=== PATIENT | female | born 1945 | race American Indian/Alaskan Native ===

== ENCOUNTER 2017-12-06 17:21 | Inpatient (IN) | payer MEDICARE ==
--- NOTE | 2017-12-06 18:34 | Emergency Department Report ---
ED Abdominal Pain HPI - General Chief Complaint: Nausea/Vomiting/Diarrhea Stated Complaint: RE-EVALUATION Time Seen by Provider: 12/06/17 18:33 Source: patient Mode of arrival: Wheelchair Limitations: No Limitations - History of Present Illness Initial Comments: This is a pleasant 71-year-old [place] female who was recently diagnosed with stage III colon cancer due to an adenocarcinoma. She recently underwent surgical resection and has a diverting ileostomy bag in place. The last few days she has noticed increased abdominal pain described as cramping and "labor- like". She states that she hasn't had any gas come out of the ileostomy bag until very recently. She said that on Thursday, and Thursday, she vomited once on each day. She also vomited on Thursday. Today the patient reports that her ileostomy bag did rupture and liquid stool was expressed. She did state that she did get some relief after this episode. She does continue to have nausea. She is also tearful about her recent diagnosis of stage III colon cancer. She has had home health come to the house and assist her. At the present time she is not in any pain. She does admit to chills however. She states that she does not have much of an appetite at this time. There is also the possibility of a subjective fever. MD Complaint: abdominal pain -: days(s) (3) Location: diffuse Radiation: none Migration to: no migration Severity: moderate Quality: cramping Consistency: intermittent Improves With: other (release of gas through the ileostomy bag.) Worsens With: vomiting Context: recent surgery/procedure Associated Symptoms: nausea, vomiting, chills - Related Data Home Medications Medication Instructions Recorded Confirmed Last Taken Aspirin [Aspirin BABY CHEW TAB] 81 mg PO QDAY 11/17/17 11/20/17 2 Weeks Ago ~11/06/17 Citalopram [celeXA] 10 mg PO QDAY 11/17/17 11/17/17 11/19/17 Fluticasone [Flonase] 1 spray NS QDAY 11/17/17 11/17/17 11/19/17 Insulin NPH, Human [NovoLIN N] 10 unit SQ BID 11/17/17 11/20/17 11/19/17 10:00 Lisinopril [Zestril TAB] 10 mg PO QDAY 11/17/17 11/17/1718 21:00 Metformin HCl [Glucophage] 1,000 mg PO QAM 11/17/17 11/17/17 11/12/17 Metoprolol Xl [Metoprolol 25 mg PO QDAY 11/17/17 11/17/17 11/19/17 21:00 SUCCINATE ER TAB] Simvastatin [Zocor TAB] 40 mg PO QHS 11/17/17 11/17/17 11/19/17 metFORMIN [Glucophage] 500 mg PO QHS 11/17/17 11/20/17 11/12/17 Previous Rx's Medication Instructions Recorded Last Taken Type Promethazine [Phenergan TAB] 25 mg PO Q6HR PRN #10 tab 11/29/17 Unknown Rx oxyCODONE /ACETAMINOPHEN [Percocet 1 - 2 tab PO Q6HR PRN #40 tablet 11/29/17 Unknown Rx 5/325] Allergies Allergy/AdvReac Type Severity Reaction Status Date / Time sulfamethoxazole Allergy Rash Verified 12/06/17 17:33 [From Bactrim] trimethoprim [From Bactrim] Allergy Rash Verified 12/06/17 17:33 ED Review of Systems ROS: Stated complaint: RE-EVALUATION Other details as noted in HPI Constitutional: see HPI, chills Eyes: as per HPI ENT: as per HPI Respiratory: no symptoms reported Cardiovascular: as per HPI Endocrine: no symptoms reported Gastrointestinal: as per HPI, abdominal pain, nausea, vomiting Genitourinary: as per HPI Musculoskeletal: as per HPI Skin: as per HPI Neurological: as per HPI Psychiatric: as per HPI Hematological/Lymphatic: as per HPI ED Past Medical Hx - Past Medical History Previous Medical History?: Yes Hx Hypertension: Yes (1 YEAR) Hx Diabetes: Yes Hx Arthritis: Yes Hx HIV: No - Surgical History Past Surgical History?: Yes Additional Surgical History: colon surgery (tumor removal per pt) - Social History Smoking Status: Never Smoker Substance Use Type: None - Medications Home Medications: Home Medications Medication Instructions Recorded Confirmed Last Taken Type Aspirin [Aspirin BABY CHEW TAB] 81 mg PO QDAY 11/17/17 11/20/17 2 Weeks Ago History ~11/06/17 Citalopram [celeXA] 10 mg PO QDAY 11/17/17 11/17/17 11/19/17 History Fluticasone [Flonase] 1 spray NS QDAY 11/17/17 11/17/17 11/19/17 History Insulin NPH, Human [NovoLIN N] 10 unit SQ BID 11/17/17 11/20/17 11/19/17 10:00 History Lisinopril [Zestril TAB] 10 mg PO QDAY 11/17/17 11/17/17 11/19/17 21:00 History Metformin HCl [Glucophage] 1,000 mg PO QAM 11/17/17 11/17/17 11/12/17 History Metoprolol Xl [Metoprolol 25 mg PO QDAY 11/17/17 11/17/17 11/19/17 21:00 History SUCCINATE ER TAB] Simvastatin [Zocor TAB] 40 mg PO QHS 11/17/17 11/17/17 11/19/17 History metFORMIN [Glucophage] 500 mg PO QHS 11/17/17 11/20/17 11/12/17 History Promethazine [Phenergan TAB] 25 mg PO Q6HR PRN #10 tab 11/29/17 Unknown Rx oxyCODONE /ACETAMINOPHEN [Percocet 1 - 2 tab PO Q6HR PRN #40 tablet 11/29/17 Unknown Rx 5/325] ED Physical Exam - General Limitations: No Limitations General appearance: alert, in no apparent distress, anxious - Head Head exam: Present: atraumatic, normocephalic - Eye Eye exam: Present: normal appearance, PERRL, EOMI - ENT ENT exam: Present: normal exam - Neck Neck exam: Present: normal inspection - Respiratory Respiratory exam: Present: normal lung sounds bilaterally - Cardiovascular Cardiovascular Exam: Present: regular rate, normal rhythm, normal heart sounds - GI/Abdominal GI/Abdominal exam: Present: soft, tenderness, hypoactive bowel sounds, other ( ileostomy bag in place. Surgical scars appear to be healing without any sign of infection at this time. Sutures are in place.). Absent: distended, guarding , rebound, rigid, mass - Rectal Rectal exam: Present: deferred - Extremities Exam Extremities exam: Present: normal inspection, full ROM - Back Exam Back exam: Present: normal inspection - Neurological Exam Neurological exam: Present: alert, oriented X3 - Psychiatric Psychiatric exam: Present: depressed, anxious - Skin Skin exam: Present: warm, dry ED Course Vital Signs 12/06/17 12/06/17 12/06/17 17:29 18:47 20:00 Temperature 97.9 F Pulse Rate 105 H 95 H Respiratory 16 14 18 Rate Blood Pressure 96/57 Blood Pressure 158/56 [Right] O2 Sat by Pulse 100 100 99 Oximetry 12/06/17 12/06/17 12/06/17 21:05 21:16 21:30 Temperature Pulse Rate 98 H 100 H 96 H Respiratory 19 18 18 Rate Blood Pressure 123/52 119/71 Blood Pressure [Right] O2 Sat by Pulse 99 Oximetry 12/06/17 12/06/17 21:46 22:00 Temperature Pulse Rate 95 H 90 Respiratory 23 16 Rate Blood Pressure 119/71 118/51 Blood Pressure [Right] O2 Sat by Pulse 96 99 Oximetry - Reevaluation(s) Reevaluation #1: 12/06/17 18:55 Due to her recent surgery and symptoms today and over the past few days, we will go ahead and get a CBC, CMP, amylase, lipase, UA as well as lactic acid and blood cultures. We will also go ahead and get a CT scan of her abdomen and pelvis with IV contrast. Since she is not able to tolerate by PO intake, we will not use oral contrast at this time. She is not sure if she is going to start chemotherapy yet. At this time she has not received any radiation treatment or chemotherapy. 12/06/17 22:[address] scan findings with the radiologist. It does appear that the patient has diffuse enteritis at this time. Since the patient has not had chemotherapy or radiation treatment as is most likely infectious in origin. Furthermore, the patient appears to have a presacral abscess. The patient also has 2 ill-defined nodules in the liver. These could be metastatic processes versus infectious such as abscesses. I reviewed the blood work as well with the patient. I explained to the patient that we will need to admit to the hospital at this time. I called the hospitalist and we will go ahead and start the patient on Zosyn. I'll admit the patient accordingly with bridge orders. ED Medical Decision Making - Lab Data Result diagrams: 12/06/17 18:59 12/06/17 18:59 Critical care attestation.: If time is entered above; I have spent that time in minutes in the direct care of this critically ill patient, excluding procedure time. ED Disposition Clinical Impression: Enteritis, Presacral mass, Colon adenocarcinoma, Ileostomy present Disposition: [id number] OP ADMIT IP TO THIS HOSP Is pt being admited?: Yes Does the pt Need Aspirin: No Condition: Stable Referrals: PRIMARY CARE, [Primary Care Provider] - 3-5 Days
[2017-12-06] MEDS ORDERED: NACL 0.9% 1000 ML 1,000 ML IV ONE (18:38)
[2017-12-06] MEDS ORDERED: ZOFRAN IV ONE (18:38)
[2017-12-06 19:40] LABS: Alanine Aminotransferase 10 units/L (7-56); Albumin 3.5 g/dL (3.9-5); BUN/Creatinine Ratio 23; Blood Urea Nitrogen 21 mg/dL (7-17); Calcium 8.4 mg/dL (8.4-10.2); Hemolysis Index 18; Lipase 16 units/L (13-60)
[2017-12-06 19:44] LABS: Basophils # (Auto) 0.1 K/mm3 (0.0-0.1); Basophils % (Auto) 0.8 % (0.0-1.8); Eosinophils # (Auto) 0.1 K/mm3 (0.0-0.4); Hematocrit 31.7 % (30.3-42.9); Hemoglobin 9.9 gm/dl (10.1-14.3); Lymphocytes # (Auto) 1.4 K/mm3 (1.2-5.4); Mean Corpuscular HGB Conc 31 % (30-34); Mean Corpuscular Volume 78 fl (79-97); Monocytes # (Auto) 0.9 K/mm3 (0.0-0.8); Monocytes % (Auto) 8.5 % (0.0-7.3); Platelet Count 358 K/mm3 (140-440); Red Blood Count 4.07 M/mm3 (3.65-5.03); Red Cell Distribution Width 16.6 % (13.2-15.2)
[2017-12-06 19:45] LABS: Mean Corpuscular Hemoglobin 24 pg (28-32)
--- NOTE | 2017-12-06 21:27 | Cat Scan Report ---
FINAL REPORT EXAM: CT ABDOMEN PELVIS W CON HISTORY: Nausea, Vomiting and Diarrhea TECHNIQUE: Axial images were performed from the lung bases to the pubic symphysis following IV contrast administration. Multiplanar reformats are performed on the acquisition scanner. Comparison: None FINDINGS: Clear lung bases. Mild diffuse hypodensity of the liver compatible with fatty infiltration. There is an ill-defined central right lobe liver mass measuring 3.4 centimeters and a 2 centimeter mass involving the left lobe liver. There is no significant intrahepatic biliary ductal dilatation. Portal vein, hepatic artery are patent. Hepatic veins are not optimally enhanced due to phase of contrast bolus but appear grossly patent. The right lobe lesion appears to be drained by the middle hepatic vein. Normal enhancement and appearance of the spleen, pancreas, right adrenal gland and bilateral kidneys. Gallbladder is moderately distended. There is mild hyperplasia of the left adrenal gland. Stomach is minimally distended. There is a right lower quadrant ileostomy. There is significant soft tissue reticulation in the anterior abdominal wall pannus. Finding may represent cellulitis versus atypical 3rd spacing. There is a right lower quadrant apparent subcutaneous nodule which extends to a track superficial to the muscular body wall. This finding may suggest previous ostomy with reversal. Less likely could represent anterior abdominal wall lymph node. If this finding in fact reflects and anterior abdominal wall lymph node, is measures 2 by 1.5 centimeters. Bowel pattern is nonobstructed. Aorta is atheromatous but not aneurysmal. There are small retroperitoneal lymph nodes. There is a rectal suture margin. There is scarring and irregular high density suggestive of suture or calcification in the presacral space. There is mild soft tissue fullness in the presacral space with an apparent ill-defined presacral air and irregular bubbly frothy collection measuring 1.3 x 4.3 centimeters. This finding may represent a presacral abscess in relation to radiation. These findings are deep to to the calcification. Urinary bladder is decompressed. Normally anteverted post menopausal uterus with coarse central calcified fibroid. There is trace free pelvic fluid. There is distal transverse colon wall thickening which may be part of a normal anatomic haustra or inflammation or neoplasm. This finding persists on the delayed phase images but is very subtle. There is contrast in the right colon and cecum. The cecum is filled with stool centrally in the bony pelvis. Normal terminal ileum. The imaged axial skeleton is unremarkable. Delayed phase images show mild diffuse small bowel wall thickening. Multiple small mesenteric arcade lymph nodes. Mild stranding in the mesentery. Distal sigmoid/rectal wall thickening. There is no erosion of the sacral cortex. IMPRESSION: Diffuse small bowel wall thickening in this patient with history of rectal colon resection and right lower quadrant ileostomy. Findings compatible with enteritis. Finding could be related to radiation or chemotherapy, or infectious. There is mild engorgement of the mesenteric arcades with small mesenteric lymph nodes and small retroperitoneal lymph nodes. Anterior abdominal wall pannus soft tissue reticulation may be related to cellulitis, subcutaneous/intradermal injection. Right lower quadrant soft tissue nodule may be related to previous surgical procedure such as ostomy with reversal or subcutaneous lymph node. There is a presacral irregular 1.3 x 4.4 centimeter air and debris collection, most compatible with abscess, question in relation to radiation. There is no definite sacral erosion. Based on the patient's clinical history, if there is a question of sacral osteomyelitis, MR pelvis may be obtained. There are 2 ill-defined masses in the liver, see above for details. These may be metastatic foci or abscesses. If these are unknown, recommend either MRI liver or three-phase liver CT to further characterize the findings as necrotic abscesses versus metastatic lesions and to characterize their vascular supply. Critical 2 report. Findings are called on 12/06/2017 at 2118 hours.
[2017-12-06 23:02] LABS: Bacteria,Urine 2+ /HPF (Negative); Bilirubin,Urine NEG (Negative); Blood,Urine NEG (Negative); Color,Urine Yellow (Yellow); Mucus,Urine FEW /HPF; Nitrite,Urine POS (Negative); Protein,Urine <15 mg/dL mg/dL (Negative); Urobilinogen,Urine < 2.0 mg/dL (<2.0)
--- NOTE | 2017-12-06 23:54 | Event Note ---
Date: 12/06/17 See dictated H/p in reports Acute Enteritis/Crohn's exacerbation HTN T2DM HLD Depression
[2017-12-07] MEDS ORDERED: DILAUDID IV PRN (04:47)
[2017-12-07] MEDS ORDERED: ZOFRAN IV PRN (04:47)
[2017-12-07] MEDS ORDERED: DULCOLAX PR PRN (04:47)
[2017-12-07] MEDS ORDERED: PHENERGAN PR PRN (04:47)
[2017-12-07] MEDS ORDERED: D50W (25GM) Syringe IV PRN (04:47)
[2017-12-07] MEDS ORDERED: MILK OF MAGNESIA PO PRN (04:47)
--- NOTE | 2017-12-07 06:22 | History and Physical Report ---
CHIEF COMPLAINT: Nausea, vomiting, and diarrhea of 3 days' duration. HISTORY OF PRESENT ILLNESS: A 71-year-old -[place]ian female diagnosed with stage III colon cancer recently with adenocarcinoma, had a surgical resection and diverting ileostomy bag in place. The patient has been having increasing abdominal pain and nausea and vomiting for the last 3 days. Vomited about 1-2 times every day since Thursday. The patient has also loose watery diarrhea into the ileostomy bag. Because of the excess volume, ileostomy bag ruptured. The patient continues to have nausea and vomiting about 1 to 2 times every day. The patient is not following with any oncologist. The patient is supposed to have a followup with her surgeon, Dr. Peralta has done the surgery a few weeks ago. The pain is periumbilical and about 8 on a scale of 1 to 10, intermittent in nature. The patient feels that she may be constipated, but is not sure. The patient has been having loose watery stools into the ileostomy bag. No fever. No shortness of breath. PAST MEDICAL HISTORY: Significant for hypertension, insulin-dependent diabetes, depression, allergic rhinitis, and hyperlipidemia. CURRENT MEDICATIONS: Aspirin 81 mg once a day, Celexa 10 mg once a day, Flonase 1 spray daily, insulin Novolin N 10 units subq b.i.d., lisinopril 10 mg once a day, metformin 1000 mg p.o. daily, metoprolol 25 mg once a day, simvastatin 40 mg p.o. at bedtime, and metformin 500 mg p.o. at bedtime. ALLERGIES: BACTRIM AND TRIMETHOPRIM. PAST SURGICAL HISTORY: Colon resection with diverting ileostomy secondary to colon cancer. SOCIAL HISTORY: She does not smoke. No alcohol, no recreational drugs. Lives with family. Family is supportive. FAMILY HISTORY: Hypertension. REVIEW OF SYSTEMS: Significant for abdominal pain, nausea, vomiting and loose watery stools. Low grade fever. Otherwise, the review of systems is essentially negative. Additional past medical history, doubtful Crohn's. The patient is not clear about having Crohn's. PHYSICAL EXAMINATION: GENERAL: Elderly female, cooperative during examination. VITAL SIGNS: Blood pressure is 131/52, temperature is 98.5, pulse is 90, respirations are 20. HEENT: Unremarkable. Pupils are equal and reactive. NECK: Supple, no lymphadenopathy, no thyromegaly. LUNGS: Clear to auscultation and percussion. Good air entry. CARDIOVASCULAR: S1, S2 heard. No gallop, no murmur, no rub. Apical impulse in left fifth intercostal space and midclavicular line. ABDOMEN: Tender in the periumbilical region. Some guarding present. Bowel sounds are present. No distention. EXTREMITIES: Good pedal pulses. No pedal edema. CENTRAL NERVOUS SYSTEM: Alert and oriented x 4, nonfocal exam. SKIN: Normal. LABORATORY DATA: White count is 10,200, H and H are 9.9 and hematocrit is 31.7, and platelet count is 358,000. MCV and MCH are low 78 and 24 respectively. Sodium is 136. Potassium is 4.9, chloride is 94.9, BUN and creatinine are 21 and 0.9, glucose is 124. Lactic acid is 1.0, normal. Amylase is 24, albumin is 3.5. Urine has 8 white cells and specific gravity of 1.059. CT of the abdomen shows diffuse small bowl thickening with a history of rectal colon resection and right lower quadrant ileostomy. Findings compatible with enteritis. Findings could be related to radiation or chemotherapy or infections. Mild engorgement of the mesenteric arteries with small mesenteric lymph nodes and small retroperitoneal lymph nodes. There is a presacral irregular 1.3 x cm air and debris collection, most compatible with abscess. The question is relation to the radiation. ASSESSMENT AND PLAN: 1. Enteritis/Crohn's exacerbation. The patient is not clear about Crohn's disease in the past. We will treat it as Crohn's disease exacerbation. The patient is started on moderate dose of Solu-Medrol 60 mg q.8 hours and also Zosyn for antibiotic coverage for intraabdominal infections. White count is not elevated. Clear liquids to continue. 2. Presacral abscess. The patient is on IV Zosyn. Surgical consult requested. for enteritis. Dr. Peralta is consulted. 3. Urinary tract infection. The patient is already on Zosyn for enteritis to cover the same. Cross coverage is good. 4. Hypertension. We will hold the antihypertensives, put her on Catapres TTS 2 patch. Adjust TTS patch accordingly. 5. Insulin-dependent diabetes. Check hemoglobin A1c coverage for now. Moderate dose sliding scale protocol. I will resume the home insulin once the patient is able to tolerate p.o. or liquids and food. 6. Hyperlipidemia. We will hold the statins. 7. Depression. We will hold the Celexa for a couple of days. 8. DVT prophylaxis, Lovenox 40 mg subcutaneous daily. JOB# [id number] LINDA/NTS
[2017-12-07] MEDS: NACL 0.9% 1000 ML 1,000 ML IV SCH ×2 (06:52→21:05)
[2017-12-07] MEDS: ZOSYN/NS 4.5GM/100ML 4.5 GM/100 ML VIAL IV SCH ×3 (06:52→21:11)
--- NOTE | 2017-12-07 08:12 | Progress Note ---
Assessment and Plan Acute Enteritis/Crohn's exacerbation HTN T2DM HLD Depression Subjective Date of service: 12/07/17 Objective - Constitutional Vitals: Vital Signs - 12hr 12/06/17 12/06/17 12/06/17 21:05 21:16 21:30 Temperature Pulse Rate 98 H 100 H 96 H Respiratory 19 18 18 Rate Blood Pressure 123/52 119/71 O2 Sat by Pulse 99 Oximetry 12/06/17 12/06/17 12/06/17 21:46 22:00 22:16 Temperature Pulse Rate 95 H 90 90 Respiratory 23 16 16 Rate Blood Pressure 119/71 118/51 118/51 O2 Sat by Pulse 96 99 97 Oximetry 12/06/17 12/06/17 12/06/17 22:30 22:46 23:00 Temperature Pulse Rate 98 H 91 H 90 Respiratory 18 16 20 Rate Blood Pressure 139/50 139/50 131/52 O2 Sat by Pulse 99 98 97 Oximetry 12/06/17 12/06/17 12/06/17 23:16 23:22 23:38 Temperature 98.5 F Pulse Rate 85 86 88 Respiratory 14 17 18 Rate Blood Pressure 131/52 131/52 122/55 O2 Sat by Pulse 94 98 99 Oximetry 12/07/17 02:25 Temperature Pulse Rate Respiratory 18 Rate Blood Pressure O2 Sat by Pulse 97 Oximetry - Labs CBC & Chem 7: 12/06/17 18:59 12/06/17 18:59 Labs: Abnormal lab results 12/06/17 12/06/17 12/06/17 Range/Units 18:59 18:59 22:41 Hgb 9.9 L (10.1-14.3) gm/dl MCV 78 L (79-97) fl MCH 24 L (28-32) pg RDW 16.6 H (13.2-15.2) % [place] % (Auto) 8.5 H (0.0-7.3) % [place] # 0.9 H (0.0-0.8) K/mm3 Seg Neutrophils % 75.7 H (40.0-70.0) % Sodium 136 L (137-145) mmol/L Chloride 94.9 L (98-107) mmol/L BUN 21 H (7-17) mg/dL Glucose 124 H (65-100) mg/dL POC Glucose (70-105) Hemoglobin A1c (4-6) % Albumin 3.5 L (3.9-5) g/dL Amylase 24 L (27-131) units/L Ur Specific [place] > 1.059 H (1.003-1.030) Urine WBC (Auto) 8.0 H (0.0-6.0) /HPF 12/07/17 12/07/17 Range/Units 00:12 05:33 Hgb (10.1-14.3) gm/dl MCV (79-97) fl MCH (28-32) pg RDW (13.2-15.2) % [place] % (Auto) (0.0-7.3) % [place] # (0.0-0.8) K/mm3 Seg Neutrophils % (40.0-70.0) % Sodium (137-145) mmol/L Chloride (98-107) mmol/L BUN (7-17) mg/dL Glucose (65-100) mg/dL POC Glucose 108 H (70-105) Hemoglobin A1c 6.8 H (4-6) % Albumin (3.9-5) g/dL Amylase (27-131) units/L Ur Specific [place] (1.003-1.030) Urine WBC (Auto) (0.0-6.0) /HPF
[2017-12-07 08:43] LABS: Basophils # (Auto) 0.1 K/mm3 (0.0-0.1); Basophils % (Auto) 0.7 % (0.0-1.8); Eosinophils # (Auto) 0.2 K/mm3 (0.0-0.4); Eosinophils % (Auto) 2.6 % (0.0-4.3); Hematocrit 30.9 % (30.3-42.9); Hemoglobin 9.7 gm/dl (10.1-14.3); Lymphocytes # (Auto) 1.1 K/mm3 (1.2-5.4); Lymphocytes % (Auto) 14.7 % (13.4-35.0); Mean Corpuscular HGB Conc 31 % (30-34); Mean Corpuscular Volume 78 fl (79-97); Monocytes # (Auto) 0.4 K/mm3 (0.0-0.8); Monocytes % (Auto) 5.9 % (0.0-7.3); Platelet Count 366 K/mm3 (140-440); Red Blood Count 3.99 M/mm3 (3.65-5.03); Red Cell Distribution Width 16.7 % (13.2-15.2)
[2017-12-07 08:54] LABS: Mean Corpuscular Hemoglobin 24 pg (28-32)
[2017-12-07 08:55] LABS: BUN/Creatinine Ratio 24; Blood Urea Nitrogen 19 mg/dL (7-17); Calcium 8.3 mg/dL (8.4-10.2); Hemolysis Index 0
[2017-12-07] MEDS: NOVOLOG SUB-Q SCH ×4 (09:01→22:40)
[2017-12-07] MEDS ORDERED: CATAPRES-TTS PATCH TD SCH (10:00)
[2017-12-07] MEDS: FLONASE NS SCH (12:23)
[2017-12-07] MEDS: PEPCID IV SCH ×2 (12:24→21:10)
--- NOTE | 2017-12-07 12:49 | Progress Note ---
<BEBETO DE JESUS - Last Filed: 12/07/17 13:42> Assessment and Plan Assessment and plan: Gastroenteritis/Crohn's exacerbation Continue IV Solu-Medrol and antibiotics Presacral abscess Continue IVs antibiotics, surgical consult ordered UTI Continue IV antibiotics, urine culture ordered Hypertension Clonidine discontinued, will resume at-home antihypertensives, continue to monitor every shift Insulin-dependent diabetes Sliding scale insulin, ADA diet, Accu-Cheks before meals and at bedtime, A1c 6.8 Hyperlipidemia Continue statin therapy Depression Psych consulted DVT prophylaxis Lovenox History Interval history: Patient seen and examined. Her only complaint is that of itching rash on her back. She denies chest pain, shortness of breath, nausea vomiting. Labs and nursing notes reviewed. Hospitalist Physical - Constitutional Vitals: Temp Pulse Resp BP Pulse Ox 98.4 F 75 20 95/43 97 12/07/17 09:00 12/07/17 09:00 12/07/17 09:00 12/07/17 09:00 12/07/17 09:00 General appearance: Present: no acute distress, obese - EENT Eyes: Present: PERRL, EOM intact ENT: hearing intact, clear oral mucosa - Neck Neck: Present: supple, normal ROM - Respiratory Respiratory effort: normal Respiratory: bilateral: CTA - Cardiovascular Rhythm: regular Heart Sounds: Present: S1 & S2 - Extremities Extremities: no ischemia, No edema - Abdominal General gastrointestinal: soft, non-tender, non-distended, other (right lower quadrant ileostomy bag) - Integumentary Integumentary: Present: warm (diffuse macular rash on back now with some scabs) , dry - Psychiatric Psychiatric: appropriate mood/affect, cooperative - Neurologic Neurologic: CNII-XII intact, moves all extremities - Allied Health Allied health notes reviewed: nursing Results - Labs CBC & Chem 7: 12/07/17 08:31 02 08:31 Labs: Laboratory Last Values WBC 7.4 K/mm3 (4.5-11.0) 12/07/17 08:31 RBC 3.99 M/mm3 (3.65-5.03) 12/07/17 08:31 Hgb 9.7 gm/dl (10.1-14.3) L 12/07/17 08:31 Hct 30.9 % (30.3-42.9) 12/07/17 08: MCV 78 fl (79-97) L 12/07/17 08: MCH 24 pg (28-32) L 12/07/17 08: MCHC 31 % (30-34) 12/07/17 08: RDW 16.7 % (13.2-15.2) H 12/07/17 08: Plt Count 366 K/mm3 (140-440) 12/07/17 08: Lymph % (Auto) 14.7 % (13.4-35.0) 12/07/17 08: [place] % (Auto) 5.9 % (0.0-7.3) 12/07/17: Eos % (Auto) 2.6 % (0.0-4.3) 12/07/17 08: Baso % (Auto) 0.7 % (0.0-1.8) 12/07/17 08: Lymph # 1.1 K/mm3 (1.2-5.4) L 12/07/17 08: [place] # 0.4 K/mm3 (0.0-0.8) 12/07/17 08: Eos # 0.2 K/mm3 (0.0-0.4) 12/07/17 08: Baso # 0.1 K/mm3 (0.0-0.1) 12/07/17 08: Seg Neutrophils % 76.1 % (40.0-70.0) H 12/07/17 08: Seg Neutrophils # 5.6 K/mm3 (1.8-7.7) 12/07/17 08: Sodium 143 mmol/L (137-145) D 12/07/17 08: Potassium 5.0 mmol/L (3.6-5.0) 12/07/17 08: Chloride 101.8 mmol/L (98-107) 12/07/17 08: Carbon Dioxide 25 mmol/L (22-30) 12/07/17 08: Anion Gap 21 mmol/L 12/07/17 08: BUN 19 mg/dL (7-17) H 12/07/17 08: Creatinine 0.8 mg/dL (0.7-1.2) 12/07/17 08:31 Estimated GFR > 60 ml/min 12/07/17 08:31 BUN/Creatinine Ratio 24 % 12/07/17 08:31 Glucose 133 mg/dL (65-100) H 12/07/17 08:31 POC Glucose 165 (70-105) H 12/07/17 11:41 Hemoglobin A1c 6.8 % (4-6) H 12/07/17 05:33 Lactic Acid 1.00 mmol/L (0.7-2.0) 12/06/17 18:59 Calcium 8.3 mg/dL (8.4-10.2) L 12/07/17 08:31 Total Bilirubin 0.40 mg/dL (0.1-1.2) 12/06/17 18:59 AST 15 units/L (5-40) 12/06/17 18:59 ALT 10 units/L (7-56) 12/06/17 18:59 Alkaline Phosphatase 60 units/L (35-129) 12/06/17 18:59 Total Protein 7.4 g/dL (6.3-8.2) 12/06/17 18:59 Albumin 3.5 g/dL (3.9-5) L 12/06/17 18:59 Albumin/Globulin Ratio 0.9 % 12/06/17 18:59 Amylase 24 units/L (27-131) L 12/06/17 18:59 Lipase 16 units/L (13-60) 12/06/17 18:59 Urine Color Yellow (Yellow) 12/06/17 22:41 Urine Turbidity Clear (Clear) 12/06/17 22:41 Urine pH 5.0 (5.0-7.0) 12/06/17 22:41 Ur Specific [place] > 1.059 (1.003-1.030) H 12/06/17 22:41 Urine Protein <15 mg/dl mg/dL (Negative) 12/06/17 22:41 Urine Glucose (UA) Neg mg/dL (Negative) 12/06/17 22:41 Urine Ketones 20 mg/dL (Negative) 12/06/17 22:41 Urine Blood Neg (Negative) 12/06/17 22:41 Urine Nitrite Pos (Negative) 12/06/17 22:41 Urine Bilirubin Neg (Negative) 12/06/17 22:41 Urine Urobilinogen < 2.0 mg/dL (<2.0) 12/06/17 22:41 Ur Leukocyte Esterase Lg (Negative) 12/06/17 22:41 Urine WBC (Auto) 8.0 /HPF (0.0-6.0) H 12/06/17 22:41 Urine RBC (Auto) 7.0 /HPF (0.0-6.0) 12/06/17 22:41 U Epithel Cells (Auto) 11.0 /HPF (0-13.0) 12/06/17 22:41 Urine Bacteria (Auto) 2+ /HPF (Negative) 12/06/17 22:41 Urine Mucus Few /HPF 12/06/17 22:41 <MATT LUX M - Last Filed: 12/07/17 15:19> Hospitalist Physical - Constitutional Vitals: Temp Pulse Resp BP Pulse Ox 98.4 F 75 20 95/43 97 12/07/17 09:00 12/07/17 09:00 12/07/17 09:00 12/07/17 09:00 12/07/17 09:00 Results - Labs CBC & Chem 7: 12/07/17 08:31 12/07/17 08:31 Labs: Laboratory Last Values WBC 7.4 K/mm3 (4.5-11.0) 12/07/17 08:31 RBC 3.99 M/mm3 (3.65-5.03) 12/07/17 08:31 Hgb 9.7 gm/dl (10.1-14.3) L 12/07/17 08:31 Hct 30.9 % (30.3-42.9) 12/07/17 08:31 MCV 78 fl (79-97) L 12/07/17 08:31 MCH 24 pg (28-32) L 12/07/17 08:31 MCHC 31 % (30-34) 12/07/17 08:31 RDW 16.7 % (13.2-15.2) H 12/07/17 08:31 Plt Count 366 K/mm3 (140-440) 12/07/17 08:31 Lymph % (Auto) 14.7 % (13.4-35.0) 12/07/17 08:31 [place] % (Auto) 5.9 % (0.0-7.3) 12/07/17 08:31 Eos % (Auto) 2.6 % (0.0-4.3) 12/07/17 08:31 Baso % (Auto) 0.7 % (0.0-1.8) 12/07/17 08:31 Lymph # 1.1 K/mm3 (1.2-5.4) L 12/07/17 08:31 [place] # 0.4 K/mm3 (0.0-0.8) 12/07/17 08:31 Eos # 0.2 K/mm3 (0.0-0.4) 12/07/17 08:31 Baso # 0.1 K/mm3 (0.0-0.1) 12/07/17 08:31 Seg Neutrophils % 76.1 % (40.0-70.0) H 12/07/17 08:31 Seg Neutrophils # 5.6 K/mm3 (1.8-7.7) 12/07/17 08:31 Sodium 143 mmol/L (137-145) D 12/07/17 08:31 Potassium 5.0 mmol/L (3.6-5.0) 12/07/17 08:31 Chloride 101.8 mmol/L (98-107) 12/07/17 08:31 Carbon Dioxide 25 mmol/L (22-30) 12/07/17 08:31 Anion Gap 21 mmol/L 12/07/17 08:31 BUN 19 mg/dL (7-17) H 12/07/17 08:31 Creatinine 0.8 mg/dL (0.7-1.2) 12/07/17 08:31 Estimated GFR > 60 ml/min 12/07/17 08:31 BUN/Creatinine Ratio 24 % 12/07/17 08:31 Glucose 133 mg/dL (65-100) H 12/07/17 08:31 POC Glucose 165 (70-105) H 12/07/17 11:41 Hemoglobin A1c 6.8 % (4-6) H 12/07/17 05:33 Lactic Acid 1.00 mmol/L (0.7-2.0) 12/06/17 18:59 Calcium 8.3 mg/dL (8.4-10.2) L 12/07/17 08:31 Total Bilirubin 0.40 mg/dL (0.1-1.2) 12/06/17 18:59 AST 15 units/L (5-40) 12/06/17 18:59 ALT 10 units/L (7-56) 12/06/17 18:59 Alkaline Phosphatase 60 units/L (35-129) 12/06/17 18:59 Total Protein 7.4 g/dL (6.3-8.2) 12/06/17 18:59 Albumin 3.5 g/dL (3.9-5) L 12/06/17 18:59 Albumin/Globulin Ratio 0.9 % 12/06/17 18:59 Amylase 24 units/L (27-131) L 12/06/17 18:59 Lipase 16 units/L (13-60) 12/06/17 18:59 Urine Color Yellow (Yellow) 12/06/17 22:41 Urine Turbidity Clear (Clear) 12/06/17 22:41 Urine pH 5.0 (5.0-7.0) 12/06/17 22:41 Ur Specific [place] > 1.059 (1.003-1.030) H 12/06/17 22:41 Urine Protein <15 mg/dl mg/dL (Negative) 12/06/17 22:41 Urine Glucose (UA) Neg mg/dL (Negative) 12/06/17 22:41 Urine Ketones 20 mg/dL (Negative) 12/06/17 22:41 Urine Blood Neg (Negative) 12/06/17 22:41 Urine Nitrite Pos (Negative) 12/06/17 22:41 Urine Bilirubin Neg (Negative) 12/06/17 22:41 Urine Urobilinogen < 2.0 mg/dL (<2.0) 12/06/17 22:41 Ur Leukocyte Esterase Lg (Negative) 12/06/17 22:41 Urine WBC (Auto) 8.0 /HPF (0.0-6.0) H 12/06/17 22:41 Urine RBC (Auto) 7.0 /HPF (0.0-6.0) 12/06/17 22:41 U Epithel Cells (Auto) 11.0 /HPF (0-13.0) 12/06/17 22:41 Urine Bacteria (Auto) 2+ /HPF (Negative) 12/06/17 22:41 Urine Mucus Few /HPF 12/06/17 22:41
--- NOTE | 2017-12-07 14:42 | Gastroenterology Consultation ---
<SAMY MADSEN - Last Filed: 12/07/17 15:55> History of Present Illness - Reason for Consult Consult date: 12/07/17 hx of sigmoid cancer, abdominal pain, crohns? Requesting physician: SANDIE BEDOLLA - History of Present Illness Ms Castellanos is a 71 y/o female admitted with increasing abdominal pain with associated N/V over the past 2-3 days. She recently underwent sigmoid resection due to a rectal mass nearly obstructing the sigmoid found during colonoscopy 10/20/18. She is s/p resection with diverting ileostomy, and right oopherectomy 11/2017. She states her ileostomy had little output for a couple of days, then suddenly had a large amount of liquid stool that caused leaking around the stoma. CT noteable for multiple findings including abdominal lymph nodes, fatty liver, ? liver mass x2, SB wall thickening c/w enteritis and a possible presacral abscess. She is currently on Zosyn and states her output has significantly slowed down. She has not vomited today. She was started on Solumedrol per primary for a questionable hx of Crohns? Past History Past Medical History: cancer, diabetes, hypertension, hyperlipidemia Past Surgical History: bowel surgery Social history: lives with family Family history: no significant family history Medications and Allergies Allergies Allergy/AdvReac Type Severity Reaction Status Date / Time sulfamethoxazole Allergy Rash Verified 12/06/17 17:33 [From Bactrim] trimethoprim [From Bactrim] Allergy Rash Verified 12/06/17 17:33 Home Medications Medication Instructions Recorded Confirmed Last Taken Type Aspirin [Aspirin BABY CHEW TAB] 81 mg PO QDAY 11/17/17 11/20/17 2 Weeks Ago History ~11/06/17 Citalopram [celeXA] 10 mg PO QDAY 11/17/17 11/17/17 11/19/17 History Fluticasone [Flonase] 1 spray NS QDAY 11/17/17 11/17/17 11/19/17 History Insulin NPH, Human [NovoLIN N] 10 unit SQ BID 11/17/17 11/20/17 11/19/17 10:00 History Lisinopril [Zestril TAB] 10 mg PO QDAY 11/17/17 11/17/17 11/19/17 21:00 History Metformin HCl [Glucophage] 1,000 mg PO QAM 11/17/17 11/17/17 11/12/17 History Metoprolol Xl [Metoprolol 25 mg PO QDAY 11/17/17 11/17/17 11/19/17 21:00 History SUCCINATE ER TAB] Simvastatin [Zocor TAB] 40 mg PO QHS 11/17/17 11/17/17 11/19/17 History metFORMIN [Glucophage] 500 mg PO QHS 11/17/17 11/20/17 11/12/17 History Promethazine [Phenergan TAB] 25 mg PO Q6HR PRN #10 tab 11/29/17 Unknown Rx oxyCODONE /ACETAMINOPHEN [Percocet 1 - 2 tab PO Q6HR PRN #40 tablet 11/29/17 Unknown Rx 5/325] Active Meds: Active Medications Acetaminophen (Tylenol) 650 mg PO Q4H PRN PRN Reason: Pain MILD(1-3)/Fever >100.5/AGUERO Bisacodyl (Dulcolax) 10 mg [place] QDAY PRN PRN Reason: Constipation unrelieved by MOM Calamine/Pramoxine (Caladryl) 1 applic TP PRN PRN PRN Reason: Itching Dextrose (D50w (25gm) Syringe) 50 ml IV PRN PRN PRN Reason: Hypoglycemia Enoxaparin Sodium (Lovenox) 40 mg SUB-Q QDAY@2200 [facility] Famotidine (Pepcid) 20 mg IV BID [facility] Last Admin: 12/07/17 12:24 Dose: 20 mg Fluticasone Propionate (Flonase) 50 mcg NS QDAY [facility] Last Admin: 12/07/17 12:23 Dose: 50 mcg Hydromorphone HCl (Dilaudid) 1 mg IV Q3H PRN PRN Reason: Pain , Severe (7-10) Sodium Chloride (Nacl 0.9% 1000 Ml) 1,000 mls @ 75 mls/hr IV DIRECT [facility] Last Admin: 12/07/17 06:52 Dose: 75 mls/hr Piperacillin Sod/Tazobactam Sod (Zosyn/Ns 4.5gm/100ml) 4.5 gm in 100 mls @ 200 mls/hr IV Q8HR PEPE PRN Reason: Protocol Last Admin: 12/07/17 06:52 Dose: 200 mls/hr Insulin Aspart (Novolog) 0 units SUB-Q ACHS PEPE PRN Reason: Protocol Last Admin: 12/07/17 12:21 Dose: 2 units Magnesium Hydroxide (Milk Of Magnesia) 30 ml PO Q4H PRN PRN Reason: Constipation Methylprednisolone Sodium Succinate (Solu-Medrol) 60 mg IV Q8HR [facility] Last Admin: 12/07/17 06:52 Dose: 60 mg Ondansetron HCl (Zofran) 4 mg IV Q3H PRN PRN Reason: N/V unrelieved by Reglan Promethazine HCl (Phenergan) 25 mg [place] Q6H PRN PRN Reason: N/V IF NPO AND NO IV ACCESS Review of Systems - Review of Systems All systems: negative Constitutional: weight loss, fatigue, weakness, poor appetite Gastrointestinal: abdominal pain, nausea, vomiting Exam - Constitutional Vital Signs: Temp Pulse Resp BP Pulse Ox 98.4 F 75 20 95/43 97 12/07/17 09:00 12/07/17 09:00 12/07/17 09:00 12/07/17 09:00 12/07/17 09:00 General appearance: no acute distress - EENT Eyes: EOM intact ENT: hearing intact - Neck Neck: supple - Respiratory Respiratory: bilateral: CTA - Cardiovascular Rhythm: regular Heart Sounds: Present: S1 & S2 - Gastrointestinal General gastrointestinal: Present: soft, normal bowel sounds, other (right ileostomy) - Integumentary Integumentary: Present: warm, dry - Neurologic Neurological: alert and oriented x3 - Psychiatric Psychiatric: appropriate mood/affect - Labs CBC & Chem 7: 12/07/17 08:31 12/07/17 08:31 Lab Results: Laboratory Results - last 24 hr 12/06/17 12/06/17 12/06/17 18:59 18:59 18:59 WBC 10.2 RBC 4.07 Hgb 9.9 L Hct 31.7 MCV 78 L MCH 24 L MCHC 31 RDW 16.6 H Plt Count 358 Lymph % (Auto) 14.0 [place] % (Auto) 8.5 H Eos % (Auto) 1.0 Baso % (Auto) 0.8 Lymph # 1.4 [place] # 0.9 H Eos # 0.1 Baso # 0.1 Seg Neutrophils % 75.7 H Seg Neutrophils # 7.7 Sodium 136 L Potassium 4.9 Chloride 94.9 L Carbon Dioxide 23 Anion Gap 23 BUN 21 H Creatinine 0.9 Estimated GFR > 60 BUN/Creatinine Ratio 23 Glucose 124 H POC Glucose Hemoglobin A1c Lactic Acid 1.00 Calcium 8.4 Total Bilirubin 0.40 AST 15 ALT 10 Alkaline Phosphatase 60 Total Protein 7.4 Albumin 3.5 L Albumin/Globulin Ratio 0.9 Amylase 24 L Lipase 16 Urine Color Urine Turbidity Urine pH Ur Specific [place] [employer] Urine Protein Urine Glucose (UA) Urine Ketones Urine Blood Urine Nitrite Urine Bilirubin Urine Urobilinogen Ur Leukocyte Esterase Urine WBC (Auto) Urine RBC (Auto) U Epithel Cells (Auto) Urine Bacteria (Auto) Urine Mucus 12/06/17 12/07/17 12/07/17 22:41 00:12 05:33 WBC RBC Hgb Hct MCV MCH MCHC RDW Plt Count Lymph % (Auto) [place] % (Auto) Eos % (Auto) Baso % (Auto) Lymph # [place] # Eos # Baso # Seg Neutrophils % Seg Neutrophils # Sodium Potassium Chloride Carbon Dioxide Anion Gap BUN Creatinine Estimated GFR BUN/Creatinine Ratio Glucose POC Glucose 108 H Hemoglobin A1c 6.8 H Lactic Acid Calcium Total Bilirubin AST ALT Alkaline Phosphatase Total Protein Albumin Albumin/Globulin Ratio Amylase Lipase Urine Color Yellow Urine Turbidity Clear Urine pH 5.0 Ur Specific [place] [employer] > 1.059 H Urine Protein <15 mg/dl Urine Glucose (UA) Neg Urine Ketones 20 Urine Blood Neg Urine Nitrite Pos Urine Bilirubin Neg Urine Urobilinogen < 2.0 Ur Leukocyte Esterase Lg Urine WBC (Auto) 8.0 H Urine RBC (Auto) 7.0 U Epithel Cells (Auto) 11.0 Urine Bacteria (Auto) 2+ Urine Mucus Few 12/07/17 12/07/17 12/07/17 06:27 08:31 08:31 WBC 7.4 RBC 3.99 Hgb 9.7 L Hct 30.9 MCV 78 L MCH 24 L MCHC 31 RDW 16.7 H Plt Count 366 Lymph % (Auto) 14.7 [place] % (Auto) 5.9 Eos % (Auto) 2.6 Baso % (Auto) 0.7 Lymph # 1.1 L [place] # 0.4 Eos # 0.2 Baso # 0.1 Seg Neutrophils % 76.1 H Seg Neutrophils # 5.6 Sodium 143 D Potassium 5.0 Chloride 101.8 Carbon Dioxide 25 Anion Gap 21 BUN 19 H Creatinine 0.8 Estimated GFR > 60 BUN/Creatinine Ratio 24 Glucose 133 H POC Glucose 97 Hemoglobin A1c Lactic Acid Calcium 8.3 L Total Bilirubin AST ALT Alkaline Phosphatase Total Protein Albumin Albumin/Globulin Ratio Amylase Lipase Urine Color Urine Turbidity Urine pH Ur Specific [place] [employer] Urine Protein Urine Glucose (UA) Urine Ketones Urine Blood Urine Nitrite Urine Bilirubin Urine Urobilinogen Ur Leukocyte Esterase Urine WBC (Auto) Urine RBC (Auto) U Epithel Cells (Auto) Urine Bacteria (Auto) Urine Mucus 12/07/17 11:41 WBC RBC Hgb Hct MCV MCH MCHC RDW Plt Count Lymph % (Auto) [place] % (Auto) Eos % (Auto) Baso % (Auto) Lymph # [place] # Eos # Baso # Seg Neutrophils % Seg Neutrophils # Sodium Potassium Chloride Carbon Dioxide Anion Gap BUN Creatinine Estimated GFR BUN/Creatinine Ratio Glucose POC Glucose 165 H Hemoglobin A1c Lactic Acid Calcium Total Bilirubin AST ALT Alkaline Phosphatase Total Protein Albumin Albumin/Globulin Ratio Amylase Lipase Urine Color Urine Turbidity Urine pH Ur Specific [place] [employer] Urine Protein Urine Glucose (UA) Urine Ketones Urine Blood Urine Nitrite Urine Bilirubin Urine Urobilinogen Ur Leukocyte Esterase Urine WBC (Auto) Urine RBC (Auto) U Epithel Cells (Auto) Urine Bacteria (Auto) Urine Mucus Assessment and Plan 1. Abdominal Pain 2. N/V 3. S/P post operative sigmoid/ rectal resection/ ileostomy -The patient does not have a documented diagnosis of IBD/ Crohns disease per our records or per the patient. STOP all steroids. CT reviewed with radiology, no enteritis. -Agree with Zosyn -Possible pre-sacral abscess per CT? unclear if this is related to prior surgery. WBC WNL, no fever. -Questionable liver mass x 2, the patient was aware of this pre-operatively- defer to surgery or evaluate as outpatient. -Agree with surgical evaluation. There is no immediate GI intervention needed at this time, the patient does not have a diagnosis of crohn's disease. -Please call with questions, will sign off. <UNA HAIDER - Last Filed: 12/07/17 16:03> Medications and Allergies Active Meds: Active Medications Acetaminophen (Tylenol) 650 mg PO Q4H PRN PRN Reason: Pain MILD(1-3)/Fever >100.5/AGUERO Bisacodyl (Dulcolax) 10 mg [place] QDAY PRN PRN Reason: Constipation unrelieved by MOM Calamine/Pramoxine (Caladryl) 1 applic TP PRN PRN PRN Reason: Itching Dextrose (D50w (25gm) Syringe) 50 ml IV PRN PRN PRN Reason: Hypoglycemia Enoxaparin Sodium (Lovenox) 40 mg SUB-Q QDAY@2200 [facility] Famotidine (Pepcid) 20 mg IV BID [facility] Last Admin: 12/07/17 12:24 Dose: 20 mg Fluticasone Propionate (Flonase) 50 mcg NS QDAY [facility] Last Admin: 12/07/17 12:23 Dose: 50 mcg Hydromorphone HCl (Dilaudid) 1 mg IV Q3H PRN PRN Reason: Pain , Severe (7-10) Sodium Chloride (Nacl 0.9% 1000 Ml) 1,000 mls @ 75 mls/hr IV DIRECT [facility] Last Admin: 12/07/17 06:52 Dose: 75 mls/hr Piperacillin Sod/Tazobactam Sod (Zosyn/Ns 4.5gm/100ml) 4.5 gm in 100 mls @ 200 mls/hr IV Q8HR PEPE PRN Reason: Protocol Last Admin: 12/07/17 06:52 Dose: 200 mls/hr Insulin Aspart (Novolog) 0 units SUB-Q ACHS PEPE PRN Reason: Protocol Last Admin: 12/07/17 12:21 Dose: 2 units Magnesium Hydroxide (Milk Of Magnesia) 30 ml PO Q4H PRN PRN Reason: Constipation Ondansetron HCl (Zofran) 4 mg IV Q3H PRN PRN Reason: N/V unrelieved by Reglan Promethazine HCl (Phenergan) 25 mg [place] Q6H PRN PRN Reason: N/V IF NPO AND NO IV ACCESS Exam - Constitutional Vital Signs: Temp Pulse Resp BP Pulse Ox 98.4 F 75 20 95/43 97 12/07/17 09:00 12/07/17 09:00 12/07/17 09:00 12/07/17 09:00 12/07/17 09:00 - Labs CBC & Chem 7: 12/07/17 08:31 12/07/17 08:31 Lab Results: Laboratory Results - last 24 hr 12/06/17 12/06/17 12/06/17 18:59 18:59 18:59 WBC 10.2 RBC 4.07 Hgb 9.9 L Hct 31.7 MCV 78 L MCH 24 L MCHC 31 RDW 16.6 H Plt Count 358 Lymph % (Auto) 14.0 [place] % (Auto) 8.5 H Eos % (Auto) 1.0 Baso % (Auto) 0.8 Lymph # 1.4 [place] # 0.9 H Eos # 0.1 Baso # 0.1 Seg Neutrophils % 75.7 H Seg Neutrophils # 7.7 Sodium 136 L Potassium 4.9 Chloride 94.9 L Carbon Dioxide 23 Anion Gap 23 BUN 21 H Creatinine 0.9 Estimated GFR > 60 BUN/Creatinine Ratio 23 Glucose 124 H POC Glucose Hemoglobin A1c Lactic Acid 1.00 Calcium 8.4 Total Bilirubin 0.40 AST 15 ALT 10 Alkaline Phosphatase 60 Total Protein 7.4 Albumin 3.5 L Albumin/Globulin Ratio 0.9 Amylase 24 L Lipase 16 Urine Color Urine Turbidity Urine pH Ur Specific [employer] Urine Protein Urine Glucose (UA) Urine Ketones Urine Blood Urine Nitrite Urine Bilirubin Urine Urobilinogen Ur Leukocyte Esterase Urine WBC (Auto) Urine RBC (Auto) U Epithel Cells (Auto) Urine Bacteria (Auto) Urine Mucus 12/06/17 12/07/17 12/07/17 22:41 00:12 05:33 WBC RBC Hgb Hct MCV MCH MCHC RDW Plt Count Lymph % (Auto) [place] % (Auto) Eos % (Auto) Baso % (Auto) Lymph # [place] # Eos # Baso # Seg Neutrophils % Seg Neutrophils # Sodium Potassium Chloride Carbon Dioxide Anion Gap BUN Creatinine Estimated GFR BUN/Creatinine Ratio Glucose POC Glucose 108 H Hemoglobin A1c 6.8 H Lactic Acid Calcium Total Bilirubin AST ALT Alkaline Phosphatase Total Protein Albumin Albumin/Globulin Ratio Amylase Lipase Urine Color Yellow Urine Turbidity Clear Urine pH 5.0 Ur Specific [employer] > 1.059 H Urine Protein <15 mg/dl Urine Glucose (UA) Neg Urine Ketones 20 Urine Blood Neg Urine Nitrite Pos Urine Bilirubin Neg Urine Urobilinogen < 2.0 Ur Leukocyte Esterase Lg Urine WBC (Auto) 8.0 H Urine RBC (Auto) 7.0 U Epithel Cells (Auto) 11.0 Urine Bacteria (Auto) 2+ Urine Mucus Few 12/07/17 12/07/17 12/07/17 06:27 08:31 08:31 WBC 7.4 RBC 3.99 Hgb 9.7 L Hct 30.9 MCV 78 L MCH 24 L MCHC 31 RDW 16.7 H Plt Count 366 Lymph % (Auto) 14.7 [place] % (Auto) 5.9 Eos % (Auto) 2.6 Baso % (Auto) 0.7 Lymph # 1.1 L [place] # 0.4 Eos # 0.2 Baso # 0.1 Seg Neutrophils % 76.1 H Seg Neutrophils # 5.6 Sodium 143 D Potassium 5.0 Chloride 101.8 Carbon Dioxide 25 Anion Gap 21 BUN 19 H Creatinine 0.8 Estimated GFR > 60 BUN/Creatinine Ratio 24 Glucose 133 H POC Glucose 97 Hemoglobin A1c Lactic Acid Calcium 8.3 L Total Bilirubin AST ALT Alkaline Phosphatase Total Protein Albumin Albumin/Globulin Ratio Amylase Lipase Urine Color Urine Turbidity Urine pH Ur Specific [employer] Urine Protein Urine Glucose (UA) Urine Ketones Urine Blood Urine Nitrite Urine Bilirubin Urine Urobilinogen Ur Leukocyte Esterase Urine WBC (Auto) Urine RBC (Auto) U Epithel Cells (Auto) Urine Bacteria (Auto) Urine Mucus 12/07/17 11:41 WBC RBC Hgb Hct MCV MCH MCHC RDW Plt Count Lymph % (Auto) [place] % (Auto) Eos % (Auto) Baso % (Auto) Lymph # [place] # Eos # Baso # Seg Neutrophils % Seg Neutrophils # Sodium Potassium Chloride Carbon Dioxide Anion Gap BUN Creatinine Estimated GFR BUN/Creatinine Ratio Glucose POC Glucose 165 H Hemoglobin A1c Lactic Acid Calcium Total Bilirubin AST ALT Alkaline Phosphatase Total Protein Albumin Albumin/Globulin Ratio Amylase Lipase Urine Color Urine Turbidity Urine pH Ur Specific [employer] Urine Protein Urine Glucose (UA) Urine Ketones Urine Blood Urine Nitrite Urine Bilirubin Urine Urobilinogen Ur Leukocyte Esterase Urine WBC (Auto) Urine RBC (Auto) U Epithel Cells (Auto) Urine Bacteria (Auto) Urine Mucus Assessment and Plan Pt seen and examined. CT reviewed. As above. Pt states this is the best she has felt since Surgery. She came in due Vx1, and blowout of her ileostomy bag.
[2017-12-07] MEDS ORDERED: CALADRYL TP PRN (14:50)
--- NOTE | 2017-12-07 18:34 | Consultation ---
History of Present Illness Consult date: 12/07/17 Reason for consult: other (nausea and vomiting X 1) - History of present illness History of present illness: This is a 71 yo F s/p Lap LAR w/ileostomy and RSO in 11-20-18 for T3N2 colon cancer. She reports nausea and vomiting yesterday with decreased output but all symptoms have now resolved. She is tolerating a diet and ileosotomy working normally again. Past History Past Medical History: cancer, diabetes, hypertension, hyperlipidemia Past Surgical History: bowel surgery, Other (Lap LAR w/ diverting ileosotomy and RSO 11-20-17) Social history: lives with family Family history: no significant family history Medications and Allergies Allergies Allergy/AdvReac Type Severity Reaction Status Date / Time sulfamethoxazole Allergy Rash Verified 12/06/17 17:33 [From Bactrim] trimethoprim [From Bactrim] Allergy Rash Verified 12/06/17 17:33 Home Medications Medication Instructions Recorded Confirmed Last Taken Type Aspirin [Aspirin BABY CHEW TAB] 81 mg PO QDAY 11/17/17 11/20/17 2 Weeks Ago History ~11/06/17 Citalopram [celeXA] 10 mg PO QDAY 11/17/17 11/17/17 11/19/17 History Fluticasone [Flonase] 1 spray NS QDAY 11/17/17 11/17/17 11/19/17 History Insulin NPH, Human [NovoLIN N] 10 unit SQ BID 11/17/17 11/20/17 11/19/17 10:00 History Lisinopril [Zestril TAB] 10 mg PO QDAY 11/17/17 11/17/17 11/19/17 21:00 History Metformin HCl [Glucophage] 1,000 mg PO QAM 11/17/17 11/17/17 11/12/17 History Metoprolol Xl [Metoprolol 25 mg PO QDAY 11/17/17 11/17/17 11/19/17 21:00 History SUCCINATE ER TAB] Simvastatin [Zocor TAB] 40 mg PO QHS 11/17/17 11/17/17 11/19/17 History metFORMIN [Glucophage] 500 mg PO QHS 11/17/17 11/20/17 11/12/17 History Promethazine [Phenergan TAB] 25 mg PO Q6HR PRN #10 tab 11/29/17 Unknown Rx oxyCODONE /ACETAMINOPHEN [Percocet 1 - 2 tab PO Q6HR PRN #40 tablet 11/29/17 Unknown Rx 5/325] Active Meds: Active Medications Acetaminophen (Tylenol) 650 mg PO Q4H PRN PRN Reason: Pain MILD(1-3)/Fever >100.5/AGUERO Bisacodyl (Dulcolax) 10 mg [place] QDAY PRN PRN Reason: Constipation unrelieved by MOM Calamine/Pramoxine (Caladryl) 1 applic TP PRN PRN PRN Reason: Itching Dextrose (D50w (25gm) Syringe) 50 ml IV PRN PRN PRN Reason: Hypoglycemia Enoxaparin Sodium (Lovenox) 40 mg SUB-Q QDAY@2200 PEPE Famotidine (Pepcid) 20 mg IV BID [facility] Last Admin: 12/07/17 12:24 Dose: 20 mg Fluticasone Propionate (Flonase) 50 mcg NS QDAY [facility] Last Admin: 12/07/17 12:23 Dose: 50 mcg Hydrocortisone Acetate (Hydrocortisone Cr) 1 applic TP Q8H PRN PRN Reason: Skin Irritation Hydromorphone HCl (Dilaudid) 1 mg IV Q3H PRN PRN Reason: Pain , Severe (7-10) Sodium Chloride (Nacl 0.9% 1000 Ml) 1,000 mls @ 75 mls/hr IV DIRECT [facility] Last Admin: 12/07/17 06:52 Dose: 75 mls/hr Piperacillin Sod/Tazobactam Sod (Zosyn/Ns 4.5gm/100ml) 4.5 gm in 100 mls @ 200 mls/hr IV Q8HR PEPE PRN Reason: Protocol Last Admin: 12/07/17 16:59 Dose: 200 mls/hr Insulin Aspart (Novolog) 0 units SUB-Q ACHS [facility] PRN Reason: Protocol Last Admin: 12/07/17 17:28 Dose: 2 units Magnesium Hydroxide (Milk Of Magnesia) 30 ml PO Q4H PRN PRN Reason: Constipation Ondansetron HCl (Zofran) 4 mg IV Q3H PRN PRN Reason: N/V unrelieved by Reglan Promethazine HCl (Phenergan) 25 mg [place] Q6H PRN PRN Reason: N/V IF NPO AND NO IV ACCESS Exam Vital Signs Temp Pulse Resp BP Pulse Ox 97.9 F 105 H 16 96/57 100 12/06/17 17:29 12/06/17 17:29 12/06/17 17:29 12/06/17 17:29 12/06/17 17:29 - General physical appearance Positive: well developed, no distress, other (ambulating in room) - Eyes Positive: PERRL - Abdomen Abdomen: Present: soft, bowel sounds normal, other (ileostomy in RLQ functioning ; incision clean w/sutures in place). Absent: tender, distended - Neurologic Neurologic: alert and oriented to time, place and person - Psychiatric Psychiatric: appropriate mood/affect Results - Labs 12/07/17 08:31 12/07/17 08:31 Abnormal lab results 12/06/17 12/06/17 12/06/17 Range/Units 18:59 18:59 22:41 Hgb 9.9 L (10.1-14.3) gm/dl MCV 78 L (79-97) fl MCH 24 L (28-32) pg RDW 16.6 H (13.2-15.2) % [place] % (Auto) 8.5 H (0.0-7.3) % Lymph # (1.2-5.4) K/mm3 [place] # 0.9 H (0.0-0.8) K/mm3 Seg Neutrophils % 75.7 H (40.0-70.0) % Sodium 136 L (137-145) mmol/L Chloride 94.9 L (98-107) mmol/L BUN 21 H (7-17) mg/dL Glucose 124 H (65-100) mg/dL POC Glucose (70-105) Hemoglobin A1c (4-6) % Calcium (8.4-10.2) mg/dL Albumin 3.5 L (3.9-5) g/dL Amylase 24 L (27-131) units/L Ur Specific [place] > 1.059 H (1.003-1.030) Urine WBC (Auto) 8.0 H (0.0-6.0) /HPF 12/07/17 12/07/17 12/07/17 Range/Units 00:12 05:33 08:31 Hgb 9.7 L (10.1-14.3) gm/dl MCV 78 L (79-97) fl MCH 24 L (28-32) pg RDW 16.7 H (13.2-15.2) % [place] % (Auto) (0.0-7.3) % Lymph # 1.1 L (1.2-5.4) K/mm3 [place] # (0.0-0.8) K/mm3 Seg Neutrophils % 76.1 H (40.0-70.0) % Sodium (137-145) mmol/L Chloride (98-107) mmol/L BUN (7-17) mg/dL Glucose (65-100) mg/dL POC Glucose 108 H (70-105) Hemoglobin A1c 6.8 H (4-6) % Calcium (8.4-10.2) mg/dL Albumin (3.9-5) g/dL Amylase (27-131) units/L Ur Specific [place] (1.003-1.030) Urine WBC (Auto) (0.0-6.0) /HPF 12/07/17 12/07/17 12/07/17 Range/Units 08:31 11:41 16:26 Hgb (10.1-14.3) gm/dl MCV (79-97) fl MCH (28-32) pg RDW (13.2-15.2) % [place] % (Auto) (0.0-7.3) % Lymph # (1.2-5.4) K/mm3 [place] # (0.0-0.8) K/mm3 Seg Neutrophils % (40.0-70.0) % Sodium (137-145) mmol/L Chloride (98-107) mmol/L BUN 19 H (7-17) mg/dL Glucose 133 H (65-100) mg/dL POC Glucose 165 H 185 H (70-105) Hemoglobin A1c (4-6) % Calcium 8.3 L (8.4-10.2) mg/dL Albumin (3.9-5) g/dL Amylase (27-131) units/L Ur Specific [place] (1.003-1.030) Urine WBC (Auto) (0.0-6.0) /HPF Diabetes panel 12/06/17 12/07/17 12/07/17 Range/Units 18:59 05:33 08:31 Sodium 136 L 143 D (137-145) mmol/L Potassium 4.9 5.0 (3.6-5.0) mmol/L Chloride 94.9 L 101.8 (98-107) mmol/L Carbon Dioxide 23 25 (22-30) mmol/L BUN 21 H 19 H (7-17) mg/dL Creatinine 0.9 0.8 (0.7-1.2) mg/dL Glucose 124 H 133 H (65-100) mg/dL Hemoglobin A1c 6.8 H (4-6) % Calcium 8.4 8.3 L (8.4-10.2) mg/dL AST 15 (5-40) units/L ALT 10 (7-56) units/L Alkaline Phosphatase 60 (35-129) units/L Total Protein 7.4 (6.3-8.2) g/dL Albumin 3.5 L (3.9-5) g/dL Calcium panel 12/06/17 12/07/17 Range/Units 18:59 08:31 Calcium 8.4 8.3 L (8.4-10.2) mg/dL Albumin 3.5 L (3.9-5) g/dL Pituitary panel 12/06/17 12/07/17 Range/Units 18:59 08:31 Sodium 136 L 143 D (137-145) mmol/L Potassium 4.9 5.0 (3.6-5.0) mmol/L Chloride 94.9 L 101.8 (98-107) mmol/L Carbon Dioxide 23 25 (22-30) mmol/L BUN 21 H 19 H (7-17) mg/dL Creatinine 0.9 0.8 (0.7-1.2) mg/dL Glucose 124 H 133 H (65-100) mg/dL Calcium 8.4 8.3 L (8.4-10.2) mg/dL Adrenal panel 12/06/17 12/07/17 Range/Units 18:59 08:31 Sodium 136 L 143 D (137-145) mmol/L Potassium 4.9 5.0 (3.6-5.0) mmol/L Chloride 94.9 L 101.8 (98-107) mmol/L Carbon Dioxide 23 25 (22-30) mmol/L BUN 21 H 19 H (7-17) mg/dL Creatinine 0.9 0.8 (0.7-1.2) mg/dL Glucose 124 H 133 H (65-100) mg/dL Calcium 8.4 8.3 L (8.4-10.2) mg/dL Total Bilirubin 0.40 (0.1-1.2) mg/dL AST 15 (5-40) units/L ALT 10 (7-56) units/L Alkaline Phosphatase 60 (35-129) units/L Total Protein 7.4 (6.3-8.2) g/dL Albumin 3.5 L (3.9-5) g/dL Assessment and Plan - Patient Problems (1) Colon adenocarcinoma Current Visit: Yes Status: Acute (2) Ileostomy present Current Visit: Yes Status: Acute Plan to address problem: Ileosotomy appears to be functioning No acute intervention required F/U with Dr. Peralta 1 week after discharge Diet as tolerated (3) Rectal cancer Current Visit: No Status: Acute
[2017-12-07] MEDS ORDERED: HYDROCORTISONE CR TP PRN (20:00)
[2017-12-07] MEDS: LOVENOX SUB-Q SCH (21:10)
[2017-12-08] MEDS: TYLENOL PO PRN ×3 (02:34→18:37)
[2017-12-08] MEDS: ZOSYN/NS 4.5GM/100ML 4.5 GM/100 ML VIAL IV SCH ×3 (05:22→22:08)
[2017-12-08 06:56] LABS: Basophils # (Auto) 0.1 K/mm3 (0.0-0.1); Basophils % (Auto) 0.8 % (0.0-1.8); Eosinophils % (Auto) 0.5 % (0.0-4.3); Hematocrit 26.9 % (30.3-42.9); Hemoglobin 8.7 gm/dl (10.1-14.3); Lymphocytes # (Auto) 1.2 K/mm3 (1.2-5.4); Mean Corpuscular HGB Conc 32 % (30-34); Mean Corpuscular Volume 77 fl (79-97); Monocytes # (Auto) 0.9 K/mm3 (0.0-0.8); Monocytes % (Auto) 11.3 % (0.0-7.3); Platelet Count 314 K/mm3 (140-440); Red Cell Distribution Width 16.5 % (13.2-15.2)
[2017-12-08 07:08] LABS: Mean Corpuscular Hemoglobin 25 pg (28-32)
[2017-12-08 07:17] LABS: Albumin 3.1 g/dL (3.9-5)
[2017-12-08] MEDS: NOVOLOG SUB-Q SCH ×3 (08:51→18:38)
[2017-12-08] MEDS ORDERED: PROVENTIL IH ONE (09:41)
[2017-12-08] MEDS: PEPCID IV SCH (10:37)
[2017-12-08] MEDS: NACL 0.9% 1000 ML 1,000 ML IV SCH (10:38)
[2017-12-08] MEDS: FLONASE NS SCH (10:42)
--- NOTE | 2017-12-08 11:40 | Event Note ---
Date: 12/08/17 Surgery note seen. Will sign off.
--- NOTE | 2017-12-08 11:53 | Consultation ---
History of Present Illness - Reason for Consult Consult date: 12/08/17 Reason for consult: Mental Health Evaluation Requesting physician: MATT LUX - Chief Complaint Chief complaint: "I am okay" - History of Present Psychiatric Illness This is a pleasant 71-year-old French female who was recently diagnosed with stage III colon cancer due to an adenocarcinoma. She recently underwent surgical resection and has a diverting ileostomy bag in place. Psychiatry was consulted to see patient for depression. Today the patient is calm and cooperative during the assessment. She stated that she was dx with depression during the time she was caring for her elderly mother. She stated that her mother had Alzheimer's and a couple years ago at their home. Recently she was dx with colon cancer in Oct 2017 and had surgery mid Nov 2017. She stated that she have been through a lot, but have a supportive son and a good scientology family. She stated "feeling down and sad" when she thinks about her medical dx, but feels that she has to move forward. She stated that she takes Celexa and its effective. She stated that her PCP manage her depression and Celexa, but has since relocated. She rate her depression 4/10, with 10 being the worse. She denies SI/HI's and AVH's. She denies any manic episodes in the past. She denies erratic sleep and a poor appetite. She denies recreational drug use and alcohol consumption (etoh). Medications and Allergies Allergies Allergy/AdvReac Type Severity Reaction Status Date / Time sulfamethoxazole Allergy Rash Verified 12/06/17 17:33 [From Bactrim] trimethoprim [From Bactrim] Allergy Rash Verified 12/06/17 17:33 Home Medications Medication Instructions Recorded Confirmed Last Taken Type Aspirin [Aspirin BABY CHEW TAB] 81 mg PO QDAY 11/17/17 12/08/17 2 Weeks Ago History ~11/06/17 Citalopram [celeXA] 10 mg PO QDAY 11/17/17 12/08/17 11/19/17 History Fluticasone [Flonase] 1 spray NS QDAY 11/17/17 12/08/17 11/19/17 History Insulin NPH, Human [NovoLIN N] 10 unit SQ BID 11/17/17 12/08/17 11/19/17 10:00 History Lisinopril [Zestril TAB] 10 mg PO QDAY 11/17/17 12/08/17 11/19/17 21:00 History Metformin HCl [Glucophage] 1,000 mg PO QAM 11/17/17 12/08/17 11/12/17 History Metoprolol Xl [Metoprolol 25 mg PO QDAY 11/17/17 12/08/17 11/19/17 21:00 History SUCCINATE ER TAB] Simvastatin [Zocor TAB] 40 mg PO QHS 11/17/17 12/08/17 11/19/17 History metFORMIN [Glucophage] 500 mg PO QHS 11/17/17 12/08/17 11/12/17 History Promethazine [Phenergan TAB] 25 mg PO Q6HR PRN #10 tab 11/29/17 12/08/17 Unknown Rx oxyCODONE /ACETAMINOPHEN [Percocet 1 - 2 tab PO Q6HR PRN #40 tablet 11/29/1704/19 Unknown Rx 5/325] Active Meds: Active Medications Acetaminophen (Tylenol) 650 mg PO Q4H PRN PRN Reason: Pain MILD(1-3)/Fever >100.5/AGUERO Last Admin: 12/08/17 02:34 Dose: 650 mg Bisacodyl (Dulcolax) 10 mg [place] QDAY PRN PRN Reason: Constipation unrelieved by MOM Calamine/Pramoxine (Caladryl) 1 applic TP PRN PRN PRN Reason: Itching Dextrose (D50w (25gm) Syringe) 50 ml IV PRN PRN PRN Reason: Hypoglycemia Enoxaparin Sodium (Lovenox) 40 mg SUB-Q QDAY@2200 [facility] Last Admin: 12/07/17 21:10 Dose: 40 mg Famotidine (Pepcid) 20 mg IV BID [facility] Last Admin: 12/08/17 10:37 Dose: 20 mg Fluticasone Propionate (Flonase) 50 mcg NS QDAY [facility] Last Admin: 12/08/17 10:42 Dose: 50 mcg Hydrocortisone Acetate (Hydrocortisone Cr) 1 applic TP Q8H PRN PRN Reason: Skin Irritation Hydromorphone HCl (Dilaudid) 1 mg IV Q3H PRN PRN Reason: Pain , Severe (7-10) Sodium Chloride (Nacl 0.9% 1000 Ml) 1,000 mls @ 75 mls/hr IV DIRECT [facility] Last Admin: 12/08/17 10:38 Dose: 75 mls/hr Piperacillin Sod/Tazobactam Sod (Zosyn/Ns 4.5gm/100ml) 4.5 gm in 100 mls @ 200 mls/hr IV Q8HR PEPE PRN Reason: Protocol Last Admin: 12/08/17 05:22 Dose: 200 mls/hr Insulin Aspart (Novolog) 0 units SUB-Q ACHS PEPE PRN Reason: Protocol Last Admin: 12/08/17 08:51 Dose: 2 units Magnesium Hydroxide (Milk Of Magnesia) 30 ml PO Q4H PRN PRN Reason: Constipation Ondansetron HCl (Zofran) 4 mg IV Q3H PRN PRN Reason: N/V unrelieved by Reglan Promethazine HCl (Phenergan) 25 mg [place] Q6H PRN PRN Reason: N/V IF NPO AND NO IV ACCESS Past psychiatric history - Past Medical History Past Surgical History: bowel surgery - past Psychiatric treatment and history psychiatric treatment history: PCP manages the patient depression. Denies a fam psy hx. - Social History Social history: lives with family (Colon Cancer) Mental Status Exam - Vital signs Last Vital Signs Temp 98.6 F 12/08/17 08:16 Pulse 85 12/08/17 08:16 Resp 20 12/08/17 08:16 BP 108/56 12/08/17 08:16 Pulse Ox 99 12/08/17 08:16 - Exam Narrative exam: MSE: Appearance: calm, cooperative Behavior: regular eye contact Speech: regular rate and tone Mood: "okay" Affect: congruent to mood Thought Process: linear Thought Content: denies SI/HI's and AVH's Motor Activity: ambulatory Cognition: A/O x3 Insight: appropriate Judgment: appropriate Results Result Diagrams: 12/08/17 06:10 12/08/17 06:10 Abnormal lab results 12/07/17 12/07/17 12/07/17 Range/Units 11:41 16:26 22:13 RBC (3.65-5.03) M/mm3 Hgb (10.1-14.3) gm/dl Hct (30.3-42.9) % MCV (79-97) fl MCH (28-32) pg RDW (13.2-15.2) % [place] % (Auto) (0.0-7.3) % [place] # (0.0-0.8) K/mm3 Seg Neutrophils % (40.0-70.0) % BUN (7-17) mg/dL Creatinine (0.7-1.2) mg/dL Glucose (65-100) mg/dL POC Glucose 165 H 185 H 248 H (70-105) Calcium (8.4-10.2) mg/dL Albumin (3.9-5) g/dL 12/08/17 12/08/17 12/08/17 Range/Units 06:10 06:10 06:37 RBC 3.50 L (3.65-5.03) M/mm3 Hgb 8.7 L (10.1-14.3) gm/dl Hct 26.9 L (30.3-42.9) % MCV 77 L (79-97) fl MCH 25 L (28-32) pg RDW 16.5 H (13.2-15.2) % [place] % (Auto) 11.3 H (0.0-7.3) % [place] # 0.9 H (0.0-0.8) K/mm3 Seg Neutrophils % 72.4 H (40.0-70.0) % BUN 22 H (7-17) mg/dL Creatinine 1.3 H D (0.7-1.2) mg/dL Glucose 164 H (65-100) mg/dL POC Glucose 187 H (70-105) Calcium 8.0 L (8.4-10.2) mg/dL Albumin 3.1 L (3.9-5) g/dL All other labs normal. Assessment and Plan Assessment and plan: Impression: MDD, Recurrent. Today the patient is calm and cooperative during the assessment. Recommendation/Plan: Start Celexa 10 mg PO daily for depression. Discussed possible suicidality/medication induced lucio with patient reference Celexa. Patient given outpatient psy services for [facility].
[2017-12-08] MEDS: celeXA PO SCH (13:04)
--- NOTE | 2017-12-08 14:57 | Progress Note ---
Assessment and Plan The patient appears to be doing well. She is to be discharged today. She is to follow with Dr. Peralta for her postoperative follow-up and she knows to call for an appointment. We'll sign off at this time. Subjective Patient Reports: Positive: no new complaints, feels better, tolerating a regular diet, bowel movement, afebrile. Negative: nausea, vomiting Objective Vital Signs - 12hr 12/08/17 08:16 Temperature 98.6 F Pulse Rate 85 Respiratory 20 Rate Blood Pressure 108/56 O2 Sat by Pulse 99 Oximetry - General physical appearance no distress - Respiratory normal respiratory effort - Abdomen soft, not tender, not distended, wound (clean and intact), other (ostomy functioning) - Psychiatric oriented to time, oriented to person, oriented to place, speech is normal, memory intact - Labs 12/08/17 06:10 12/08/17 06:10 Diabetes panel 12/08/17 Range/Units 06:10 Sodium 139 (137-145) mmol/L Potassium 4.1 (3.6-5.0) mmol/L Chloride 102.7 (98-107) mmol/L Carbon Dioxide 23 (22-30) mmol/L BUN 22 H (7-17) mg/dL Creatinine 1.3 H D (0.7-1.2) mg/dL Glucose 164 H (65-100) mg/dL Calcium 8.0 L (8.4-10.2) mg/dL AST 14 (5-40) units/L ALT 8 (7-56) units/L Alkaline Phosphatase 46 (35-129) units/L Total Protein 6.5 (6.3-8.2) g/dL Albumin 3.1 L (3.9-5) g/dL Calcium panel 12/08/17 Range/Units 06:10 Calcium 8.0 L (8.4-10.2) mg/dL Albumin 3.1 L (3.9-5) g/dL Pituitary panel 12/08/17 Range/Units 06:10 Sodium 139 (137-145) mmol/L Potassium 4.1 (3.6-5.0) mmol/L Chloride 102.7 (98-107) mmol/L Carbon Dioxide 23 (22-30) mmol/L BUN 22 H (7-17) mg/dL Creatinine 1.3 H D (0.7-1.2) mg/dL Glucose 164 H (65-100) mg/dL Calcium 8.0 L (8.4-10.2) mg/dL Adrenal panel 12/08/17 Range/Units 06:10 Sodium 139 (137-145) mmol/L Potassium 4.1 (3.6-5.0) mmol/L Chloride 102.7 (98-107) mmol/L Carbon Dioxide 23 (22-30) mmol/L BUN 22 H (7-17) mg/dL Creatinine 1.3 H D (0.7-1.2) mg/dL Glucose 164 H (65-100) mg/dL Calcium 8.0 L (8.4-10.2) mg/dL Total Bilirubin 0.30 (0.1-1.2) mg/dL AST 14 (5-40) units/L ALT 8 (7-56) units/L Alkaline Phosphatase 46 (35-129) units/L Total Protein 6.5 (6.3-8.2) g/dL Albumin 3.1 L (3.9-5) g/dL
--- NOTE | 2017-12-08 15:09 | Discharge Summary ---
Providers - Providers Date of Admission: 12/06/17 22:34 Date of discharge: 12/09/17 Attending physician: ALEX CHAO 12/07/17 04:47 Consult to Physician [CONS] Routine Consulting Provider: UNA HAIDER Reason For Exam: Enteritis/Crohn's Place consult to:: AUDIE Notified:: AUDIE Phone number called:: INHOUSE Was contact made?: Yes If yes, spoke with:: AUDIE Time called:: 09:32 Comment:: JAROCHO NOTIFIED 12/07/17 05:28 Consult to Physician [CONS] Routine Consulting Provider: PREM COLEMAN Reason For Exam: Enteritis/Colon Cancer Place consult to:: DR. COLEMAN Notified:: OFFICE Phone number called:: [phone] Was contact made?: Yes If yes, spoke with:: MECHE Time called:: 09:44 Comment:: JAROCHO NOTIFIED 12/07/17 12:10 Consult to Mental Health [CONS] Routine Reason For Exam: depression Place consult to:: Mental Health Notified:: Padma Phone number called:: [phone] Primary care physician: TRADE EMBALMER Hospitalization Condition: Stable Hospital course: Ms Castellanos is a 71 y/o female admitted with increasing abdominal pain with associated N/V over the past 2-3 days. She recently underwent sigmoid resection due to a rectal mass nearly obstructing the sigmoid found during colonoscopy 10/20/18. She is s/p resection with diverting ileostomy, and right oopherectomy 11/2017. She states her ileostomy had little output for a couple of days, then suddenly had a large amount of liquid stool that caused leaking around the stoma. CT noteable for multiple findings including abdominal lymph nodes, fatty liver, ? liver mass x2, SB wall thickening c/w enteritis and a possible presacral abscess. She is currently on Zosyn and states her output has significantly slowed down. She has not vomited today. She was started on Solumedrol per primary for a questionable hx of Crohns? Discharge Diagnosis and management: /possible Gastroenteritis with Presacral abscess suspected on admission but ruled out GS consulted, no surgical indication /UTI treated with IV antibiotics, urine culture ordered /Hypertension Clonidine discontinued, resumed at-home antihypertensives, monitored BP every shift /Insulin-dependent diabetes Sliding scale insulin, ADA diet, Accu-Cheks before meals and at bedtime, A1c 6.8 /Hyperlipidemia Continue statin therapy /Depression Psych consulted started on celexa /DVT prophylaxis Lovereaganx Hospitalist Physical General appearance: Present: no acute distress, obese - EENT Eyes: Present: PERRL, EOM intact ENT: hearing intact, clear oral mucosa - Neck Neck: Present: supple, normal ROM - Respiratory Respiratory effort: normal Respiratory: bilateral: CTA - Cardiovascular Rhythm: regular Heart Sounds: Present: S1 & S2 - Extremities Extremities: no ischemia, No edema - Abdominal General gastrointestinal: soft, non-tender, non-distended, other (right lower quadrant ileostomy bag) - Integumentary Integumentary: Present: warm (diffuse macular rash on back now with some scabs) , dry - Psychiatric Psychiatric: appropriate mood/affect, cooperative - Neurologic Neurologic: CNII-XII intact, moves all extremities - Allied Health Allied health notes reviewed: nursing Disposition: DC-01 TO HOME OR SELFCARE Time spent for discharge: 32 minutes Exam - Constitutional Vitals: Temp Pulse Resp BP Pulse Ox 98.6 F 85 20 108/56 99 12/08/17 08:16 12/08/17 08:16 12/08/17 08:16 12/08/17 08:16 12/08/17 08:16 Plan Activity: advance as tolerated Weight Bearing Status: Non-Weight Bearing Diet: diabetic Wound: keep clean and dry, per your surgeon's advice, drain care as instructed Follow up with: PRIMARY CARE, [Primary Care Provider] - 3-5 Days Prescriptions: Levofloxacin [Levaquin TAB] 250 mg PO Q24HR #3 tablet
[2017-12-08] MEDS: LOVENOX SUB-Q SCH (22:09)
[2017-12-09] MEDS: NOVOLOG SUB-Q SCH ×4 (01:35→17:00)
[2017-12-09] MEDS: ZOSYN/NS 4.5GM/100ML 4.5 GM/100 ML VIAL IV SCH (06:16)
[2017-12-09] MEDS: NACL 0.9% 1000 ML 1,000 ML IV SCH (06:16)
--- NOTE | 2017-12-09 08:44 | Progress Note ---
Assessment and Plan /Cassius vasomotor nephropathy? iv abx/ repear bmp in the am, cont iv fluid /possible Gastroenteritis with Presacral abscess suspected on admission but ruled out GS consulted, no surgical indication cont abx for now to cover enteritis /UTI being treated with IV antibiotics, urine culture ordered /Hypertension Clonidine discontinued, resumed at-home antihypertensives, monitored BP every shift /Insulin-dependent diabetes Sliding scale insulin, ADA diet, Accu-Cheks before meals and at bedtime, A1c 6.8 /Hyperlipidemia Continue statin therapy /Depression Psych consulted started on celexa /DVT prophylaxis Lovenox brief history: Ms Castellanos is a 71 y/o female admitted with increasing abdominal pain with associated N/V over the past 2-3 days. She recently underwent sigmoid resection due to a rectal mass nearly obstructing the sigmoid found during colonoscopy 10/20/18. She is s/p resection with diverting ileostomy, and right oopherectomy 11/2017. She states her ileostomy had little output for a couple of days, then suddenly had a large amount of liquid stool that caused leaking around the stoma. CT initially commented multiple findings including abdominal lymph nodes, fatty liver, ? liver mass x2, SB wall thickening c/w enteritis and a possible presacral abscess. She was placed on Zosyn and states her output has significantly slowed down. She was started on Solumedrol per primary for a questionable hx of Crohns? GI was consulted and she does not have crohns disease. Off solumedrol now. GS evaluated and no indication for surgery. She is cleared for discharge by GI and GS but noted to have elevated creatinine. discharge on hold now for CASSIUS. Hospitalist Physical General appearance: Present: no acute distress, obese - EENT Eyes: Present: PERRL, EOM intact ENT: hearing intact, clear oral mucosa - Neck Neck: Present: supple, normal ROM - Respiratory Respiratory effort: normal Respiratory: bilateral: CTA - Cardiovascular Rhythm: regular Heart Sounds: Present: S1 & S2 - Extremities Extremities: no ischemia, No edema - Abdominal General gastrointestinal: soft, non-tender, non-distended, other (right lower quadrant ileostomy bag) - Integumentary Integumentary: Present: warm (diffuse macular rash on back now with some scabs) , dry - Psychiatric Psychiatric: appropriate mood/affect, cooperative - Neurologic Neurologic: CNII-XII intact, moves all extremities - Allied Health Allied health notes reviewed: nursing Subjective Date of service: 12/08/17 Interval history: patient seen and examined no new complaint good output with ostomy Objective - Constitutional Vitals: Vital Signs - 12hr 12/08/17 12/08/17 12/09/17 21:00 23:31 07:36 Temperature 98.0 F 98.0 F Pulse Rate 71 73 Respiratory 20 18 20 Rate Blood Pressure 101/43 105/46 O2 Sat by Pulse 99 99 Oximetry - Labs CBC & Chem 7: 12/08/17 06:10 12/08/17 17:35 Labs: Abnormal lab results 12/08/17 12/08/17 12/08/17 Range/Units 11:24 17:04 17:35 Creatinine 1.4 H (0.7-1.2) mg/dL POC Glucose 165 H 219 H (70-105) 12/09/17 Range/Units 01:11 Creatinine (0.7-1.2) mg/dL POC Glucose 143 H (70-105)
[2017-12-09] MEDS ORDERED: LEVAQUIN PO SCH (10:00)
[2017-12-09] MEDS ORDERED: PEPCID PO SCH (10:00)
[2017-12-09] MEDS: celeXA PO SCH (10:11)
[2017-12-09] MEDS: FLONASE NS SCH (10:13)
[2017-12-09 15:03] LABS: Calcium 8.3 mg/dL (8.4-10.2)
[2017-12-09 15:53] VITALS: BP 105/56
== END 2017-12-09 17:45 | disposition home or self-care (01) | DRG 385 ==
LOC: ED 17:21 → 3A 22:34
PROVIDERS: ADMIT Internal Medicine; ATTEND Internal Medicine
DX: K50.90 Crohn's disease, unspecified, without complications (principal); N17.0 Acute kidney failure with tubular necrosis; C18.9 Malignant neoplasm of colon, unspecified; N39.0 Urinary tract infection, site not specified; L02.818 Cutaneous abscess of other sites; F33.9 Major depressive disorder, recurrent, unspecified; M19.90 Unspecified osteoarthritis, unspecified site; E11.9 Type 2 diabetes mellitus without complications; I10 Essential (primary) hypertension; E78.5 Hyperlipidemia, unspecified; Z88.2 Allergy status to sulfonamides; Z88.8 Allergy status to other drugs, medicaments and biological substances; Z79.899 Other long term (current) drug therapy; Z79.82 Long term (current) use of aspirin; Z90.49 Acquired absence of other specified parts of digestive tract; Z79.4 Long term (current) use of insulin
CPT/HCPCS: 36415; 74177; 80048; 80053; 81001; 82140; 82150; 82565; 82962; 83036; 83690; 85025; 87040; 87086; A6250; J1650; J1815; J2405; J2543; J2930; J7030; Q9967

== ENCOUNTER 2017-12-24 07:04 | Outpatient (CLI) | payer MEDICARE ==
--- NOTE | 2017-12-24 12:14 | Fluoroscopy Report ---
GASTROGRAFIN ENEMA HISTORY: Colon neoplasm, anastomosis. FINDINGS: Correlation is made with a CT abdomen pelvis with contrast dated 12/06/17. 21 fluoroscopic images were captured during this exam. Photoflash Powder Mixer film of the abdomen is within normal limits. No evidence for obstruction. A rectal tube was inserted and secured by balloon inflation for retrograde administration of Gastrografin. The images demonstrate mild mucosal irregularity in the rectum. There is also suggestion of a small fistula arising from the posterior surface of the mid rectum which communicates with the presacral space. This is best demonstrated on the lateral pelvic image. This is also demonstrated on fluoroscopic images 4-9. The remainder of the colon is normal caliber and mucosal pattern. There were multiple filling defects in the colon is consistent with stool. The postevacuation film demonstrates normal incomplete emptying of the colon. IMPRESSION: There is mild mucosal irregularity in the rectum with suspected small fistula communicating with the presacral space.
== END 2017-12-24 07:05 | disposition home or self-care (01) ==
LOC: FLUORO 07:04
PROVIDERS: ATTEND Surgery
DX: C18.7 Malignant neoplasm of sigmoid colon (principal)
CPT/HCPCS: 74270; Q9963